=== PATIENT | male | born 2005 | race Caucasian/White ===

== ENCOUNTER 2024-06-24 15:07 | Emergency (ER) | payer OTHER, BC, SELFPAY ==
[2024-06-24 15:11] VITALS: BP 171/69; PULSE 68; RESP 16; TEMP 37.7; O2SAT 98; BMI 28.4
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
--- OUTSIDE RECORDS SUMMARY | 2024-06-24 15:49 | XMS_ITS | Clinical Summary ---
Author Organization [facility] Address [address] [place] [address] Care Team Providers Care Process Checker Name Role Phone Not Named, Unknown Primary Care Provider Unavail able Social History Tobacco Use Types Packs/Day Years Used Date Smoking Tobacco: Never Assessed Sex and Gender Information Value Date Recorded Sex Assigned at Not on file Gender Identity Not on file Sexual Orientation Not on file Plan of Treatment Health Maintenance Due Date Last Done Comments MMR VACCINES (1 of 1 - Stand kedar series) 2005 DTAP/TD/TDAP (1 - Tdap) 06/07/2011 VARICELLA VACCINES (1 of 2 - 13+ 2-dose series) 2017 HPV VACCINE (1 - Male 3-dose series) 06/07/2019 MENINGOCOCCAL B VACCINES (1 of 2 - Standard) 2020 HEPATITIS B VACCINES (1 of 3 - 19+ 3-dose series) 06/07/2023 COVID-19 VACCINE (2023-2 5 season) 2023 INFLUENZA VACCINES (9 YEARS AND OLDER) 11/21/2023 HEPATITIS A VACCINE Aged Out No longe r eligible based on patient's age to complete this topic MENINGOCOCCAL VACCINES Aged Out No lo nger eligible based on patient's age to complete this topic POLIO VACCINE Aged Out No longer elig ible based on patient's age to complete this topic Pneumococcal Vaccine Aged Out No long er eligible based on patient's age to complete this topic RSV (NIRSEVIMAB) Aged Out No longer e ligible based on patient's age to complete this topic Care Teams Process Checker Relationship Specialty Start Date End Date Not Named, Unknown PCP - General 02/25/19
--- OUTSIDE RECORDS SUMMARY | 2024-06-24 15:49 | XMS_ITS | Clinical Summary ---
Author Organization [facility] Address [address] [place] [address] Care Team Providers Care Recruiting And Selection Consultant Name Role Phone Cash Vinson MD, Jose Antonio Primary Care Provider [phone] Allergies Active Allergy Reactions Criticality Noted Date Comments Penicillins RASH Low 10/02/2012 Medications No known medications Active Problems No known active problems Immunizations Name Administration Dates Next Due Influenza, split virus, quadrivalent, PF 018 Surgical History Surgery Date Site/Laterality Comments NO PAST SURGERIES Medical History Medical History Date Comments No pertinent past medical history No known problems Social History Tobacco Use Types Packs/Day Years Used Date Smoking Tobacco: Never Assessed Inadequate Housing Answer Date Recorded Social Determinants: Housing (Overall Score Help er) 0 11/02/2018 Sex and Gender Information Value Date Recorded Sex Assigned at Not on file Gender Identity Not on file Sexual Orientation Not on file Job Start Date Occupation Industry Not on file Not on file Not on file Obstetrics History Last Filed Vital Signs Vital Sign Reading Time Taken Comments Blood Pressure 117/75 11/16/2022 3:30 PM CDT Pulse 76 11/16/2022 3:30 PM CDT Temperature 36.7 C (98 F) 11/16/2022 3:30 PM CDT Respiratory Rate 18 11/16/2022 3:30 PM CDT Oxygen Saturation 98% 11/16/2022 3:30 PM CDT Inhaled Oxygen Concentration - - Weight 84.4 kg (186 lb) 11/16/2022 3:30 PM CDT Height 177.8 cm (5' 10) 11/16/2022 3:30 PM CDT Body Mass Index 26.69 11/16/2022 3:30 PM CDT Plan of Treatment Health Maintenance Due Date Last Done Comments Annual Physical (ages 3 - 21) 06/07/2007 Depression Screening 2016 Meningococcal Serogroup B Vaccine (1 of 2 - Standard) 2020 COVID-19 Vaccine (4 - season) 2023 03/23/2021, 07/28/2020, 07/07/2020 Influenza Vaccine (Season Ended) 2024 12/25/2017 DTaP/Tdap/Td Vaccine (7 - Td or Tdap) 10/06/2025 10/07/2015, 10/07/2009, 12/15/2005, Additional history exists Hepatitis B Vaccine Completed 02/23/2005, 2004, 2004 Pneumococcal Vaccine 0-49 Completed 2005, 02/23/2005, 2004, Additional history exists Varicella Vaccine Completed 10/07/2009, 06/09/2005 HPV Vaccine Completed 11/14/2019, 10/11/2018 Meningococcal Vaccine Completed 12/25/2021, 016 Hepatitis A Vaccine Aged Out No longe r eligible based on patient's age to complete this topic Care Teams Recruiting And Selection Consultant Relationship Specialty Start Date End Date Jose Antonio Victor MD PCP - General Pediatrics 11/29/20
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
--- OUTSIDE RECORDS SUMMARY | 2024-06-24 15:49 | XMS_ITS | Referral Summary ---
Author Organization [facility] Address [address] [place] [address] Care Team Providers Care Ecological Modeler Name Role Phone Cash Vinson MD, [facility] Primary Care Provider Allergies Active Allergy Reactions Criticality Noted Date Comments Penicillins RASH Low 10/02/2012 Medications No known medications Active Problems No known active problems Immunizations Name Administration Dates Next Due Influenza, split virus, quadrivalent, PF 018 Social History Tobacco Use Types Packs/Day Years [...] file Not on file Not on file Last Filed Vital Signs [...] 11/16/2022 3:30 PM CDT Plan of Treatment Not on file Care Teams Ecological Modeler Relationship Specialty Start Date End Date Jose Antonio Victor MD PCP - General Pediatrics 11/29/20
--- OUTSIDE RECORDS SUMMARY | 2024-06-24 15:49 | XMS_ITS | Referral Summary ---
Author Organization [facility] Address [address] [place] [address] Care Team Providers Care Deli/Bakery Associate Name Role Phone Not Named, Unknown Primary Care Provider Unavail able Social History Tobacco Use Types Packs/Day Years Used Date Smoking Tobacco: Never Assessed Sex and Gender Information Value Date Recorded Sex Assigned at Not on file Gender Identity Not on file Sexual Orientation Not on file Plan of Treatment Not on file Care Teams Deli/Bakery Associate Relationship Specialty Start Date End Date Not Named, Unknown PCP - General 02/25/19
--- OUTSIDE RECORDS SUMMARY | 2024-06-24 15:49 | XMS_ITS | Encounter Summary ---
Author Organization [facility] Address [address] [place] [address] Care Team Providers Care Motor Vehicle Lecturer Name Role Phone Cash Vinson MD, Darryl Primary Care Provider [phone] Encounter Details Date Type Department Care Team ([facility] st Contact Info) Description 10/12/2019 Orders Only Family Medicine - [address] [place] [address] [address] [place] [phone] Jose Antonio Victor MD [address] [facility] [address] [place] [address] Close exposure to COVID-19 virus Social History Tobacco Use Types Packs/Day Years [...] on file Sexual Orientation Not on file COVID-19 Exposure Response Date Recorded In the last month, have you been in contact with someone who was confirmed or suspected to have Coronavirus / COVID-19? Yes 10/10/2019 6:21 PM CDT documented as of this encounter Progress Notes * Karely Macedo APN - 10/14/2019 12:56 PM CDT Primary patient preferred number [phone] Cell. May leave detailed phone message including lab/test results. Spoke with parent, verbalizes understanding and agrees with parent * Jose Antonio Victor MD - 10/14/2019 12:01 PM CDT Let Giorgio/parent know that the nasal swab is negative. Keep up observations for symptoms through the next week, though. Let me know if questions. Keep up efforts to avoid exposures. documented in this encounter Plan of Treatment Not on file documented as of this encounter Procedures Procedure Name Priority Date/Time Associated Diagnosis Comments 2019 NOVEL CORONAVIRUS (COVIDENTIFICATION-19) , NUCLEIC ACID AMPLIFICATION Routine 10/12/2019 9:36 AM CDT Close exposure to COVID-19 virus documented in this encounter Results * 2019 NOVEL CORONAVIRUS (COVID-19), MOOKIE (10/12/2019 9:36 AM CDT) SARS-CoV-2, MOOKIE Not Detected Not Detected 10/13/2019 8:08 PM CDT [facility] ([facility]) Comment: Testing was performed using the hollis(R) SARS-CoV-2 test. This test was developed and its performance characteristics determined by [employer]. This test has not been FDA cleared or approved. This test has been authorized by FDA under an Emergency Use Authorization (EUA). This test is only authorized for the duration of time the declaration that circumstances exist justifying the authorization of the emergency use of in vitro diagnostic tests for detection of SARS-CoV-2 virus and/or diagnosis of COVID-19 infection under section 564(b)(1) of the Act, 21 U.S.C. 360bbb-3(b)(1), unless the authorization is terminated or revoked sooner. When diagnostic testing is negative, the possibility of a false negative result should be considered in the context of a patient's recent exposures and the presence of clinical signs and symptoms consistent with COVID-19. An individual without symptoms of COVID-19 and who is not shedding SARS-CoV-2 virus would expect to have a negative (not detected) result in this assay. Other NASOPHARYNGEAL SWAB / Unknown 10/12/2019 9:36 AM CDT 10/12/2019 9:36 AM CDT Narrative MICHELE (PREETHI) - 10/13/2019 8:08 PM CDT Performed at: 01 - [facility] [address] [id number] Machinist Job Setter: Suha Hauser MD, Phone: [phone] Jose Antonio Vinson MD MICROBIOLOGY ORDERAB LES MICHELE MAJANO) documented in this encounter Visit Diagnoses Diagnosis Close exposure to COVID-19 virus documented in this encounter Additional Health Concerns Infection Onset Date Last Indicated Resolved Time R/O COVID19 10/12/2019 10/12/2019 10/13/2019 7:08 PM CDT documented as of this encounter Care Teams Motor Vehicle Lecturer Relationship Specialty Start Date End Date Jose Antonio Victor MD [address] [address] PCP - General Internal Medicine 10/02/12 documented as of this encounter
--- OUTSIDE RECORDS SUMMARY | 2024-06-24 15:49 | XMS_ITS | Continuity of Care Document ---
Author Organization [facility] Address [address] [facility] [address] [place] [address] Phone Care Team Providers Care Director Of Physiotherapy Services Name Role Phone Cesar PT, MPT, Juice Unavailable Unavail able Procedures Procedure Date Neuromuscular Re-Ed Therapeutic Activities Therapeutic Exercise Therapeutic Activities Neuromuscular Re-Ed Therapeutic Exercise Neuromuscular Re-Ed Therapeutic Activities Therapeutic Exercise Therapeutic Activities Progress Note Neuromuscular Re-Ed Hot or Cold Pack Therapeutic Exercise Electrical Stimulation Therapeutic Exercise Neuromuscular Re-Ed Therapeutic Activities Therapeutic Exercise Therapeutic Activities Neuromuscular Re-Ed Therapeutic Activities Neuromuscular Re-Ed Therapeutic Exercise Therapeutic Activities Neuromuscular Re-Ed Neuromuscular Re-Ed Therapeutic Exercise Therapeutic Activities Neuromuscular Re-Ed Therapeutic Exercise Therapeutic Exercise PT Evaluation Moderate Complexity Neuromuscular Re-Ed Therapeutic Activities Advance Directives Directive Yes / No Effective Date File Name No Information Encounters Encounter Description Practice Location Reason(s) For Visit Diagnoses Date Provider Providers [facility]ied on [facility] [address] [facility], [place], [place], [id number], tel:[phone] [place] No Information Cesar Juice. [address] [place], [address], . tel:[phone] [facility], [address], [place], [place], [id number], tel:[phone] [place] No Information Cesar Juice. [facility]ly [facility] [place], [address], . tel:[phone] Referring Provider: Nestor Coleman PA-C, [address] [place] [address], [place], [address]. tel:[phone] [facility], [place], [place], [id number], tel:[phone] [place] No Information Cesar Juice. [facility] [place], [address], . tel:[phone] Referring Provider: Nestor Coleman PA-C, [address] [place] [address], [place], [address]. tel:[phone] [facility], [address], [place], [place], [id number], tel:[phone] [place] No Information Cesar Juice. [facility] [place], [address], [place]. tel:[phone] Referring Provider: Nestor Coleman PA-C, [address] [place] [address], [place], [address]. tel:[phone] [facility], [address], [place], [place], [id number], tel:[phone] [place] No Information Cesar Juice. [address] [place], [address], [place]. tel:[phone] Referring Provider: Nestor Coleman PA-C, [facility], [place], [address]. tel:[phone] [facility], [address] [facility], [place], [place], [id number], [place] tel:[phone] [place] No Information Cesar Juice. [address] [place], [address], [place]. tel:[phone] Referring Provider: Nestor Coleman PA-C, [facility], [place], [address]. tel:[phone] [place] [address], [address] [facility], [place], [place], [id number], [place] tel:[phone] [place] No Information Cesar Juice. [address] [place], [address], [place]. tel:[phone] Referring Provider: Nestor Coleman PA-C, [address] [facility], [place], [address]. tel:[phone] [place] [address], [address] [facility] [address], [place], [place], [id number], [place] tel:[phone] [place] No Information Cesar Juice. [address] [place], [address], [place]. tel:[phone] Referring Provider: Nestor Coleman PA-C, [address], [place], [address]. tel:[phone] [facility], [address] [facility], [place], [id number], [place] tel:[phone] [place] No Information Cesar Juice. [address] [place], [address], [place]. tel:[phone] Referring Provider: Nestor Coleman PA-C, [address], [place], [address]. tel:[phone] [facility], [address] [facility] [address] [place] [address], [id number], tel:[phone] [place] No Information Cesar Bose. [facility] [place], [address], . tel:[phone] Referring Provider: Nestor Coleman PA-C, [facility] [place], [address]. tel:[phone] [facility], [address], [id number], tel:[phone] [place] No Information Cesar Bose. [facility] [place], [address], . tel:[phone] Referring Provider: Nestor Coleman PA-C, [facility] [place], [address]. tel:[phone] [facility], [address], [id number], tel:[phone] [place] No Information Cesar Bose. [facility] [place], [address], . tel:[phone] Referring Provider: Nestor Coleman PA-C, [facility] [place], [address]. tel:[phone] Family History Family Member Type Diagnosis Age At Onset No Information Payers Payer name Insurance type Covered republican ID Authoriza tion(s) No Information Social History Type Description Quantity Date Captured Comments Sex Male Smoking Status No Information Chief Complaint And Reason For Visit No Information Reason For Referral Reason For Referral No Information History Of Present Illness Encounter Date Complaint History Of Prese nt Illness No Information Functional Status Date Functional Assessmen t No Information Instructions Date Instruction Additional Infor mation No Information Assessments Type Assessment Date No Information Patient Care Teams Name Effective Dates (start - stop) Status Members No Information
--- OUTSIDE RECORDS SUMMARY | 2024-06-24 15:50 | XMS_ITS | Clinical Summary ---
Author Organization [facility] Address [address] [place] [address] Care Team Providers Care Studio Engineer Name Role Phone Cash Vinson MD, Jose Antonio Primary Care Provider [phone] Allergies Active Allergy Reactions Criticality Noted Date Comments Penicillins RASH Low 10/02/2012 Medications No known medications Active Problems Problem Noted Date Diagnosed Date Knee laceration 01/18/2015 Immunizations Name Administration Dates Next Due DTAP 10/07/2009, 6,2004,2004,2004 FLUZONE 6 months and older P FS 0.5 ml (21512) 12/25/2017 HEP B 02/23/2005,2004,2004 HIB 09/15/2005, 5,2004,2004 Hpv Virus Vaccine 9 Edna Im 11/14/2019,10/11/2018 IPV 10/07/2009, 6,2004,2004 MMR 06/09/2005 MMR/Varicella Combined 10/07/2009 Meningococcal-Menactra 10/07/2015 Meningococcal-Menquadfi 12/25/2021 Pneumococcal (Prevnar 13) 06/09/2005,07/2004,2004,2004 TDAP 10/07/2015 Varicella 06/09/2005 Family History Medical History Relation Comments No Known Problems Father No Known Problems Mother Relation Status Comments Father Alive Mother Alive Social History Tobacco Use Types Packs/Day Years [...] Sign Reading Time Taken Comments Blood Pressure 126/74 12/25/2021 4:20 PM CDT Pulse 89 12/25/2021 4:20 PM CDT Temperature 36.6 C (97.9 F) 11/14/2019 10:11 AM CDT Respiratory Rate 18 10/02/2012 2:47 PM CDT Oxygen Saturation 99% 12/25/2021 4:20 PM CDT Inhaled Oxygen Concentration - - Weight 88 kg (194 lb) 12/25/2021 4:20 PM CDT Height 177.8 cm (5' 10) 12/25/2021 4:20 PM CDT Body Mass Index 27.84 12/25/2021 4:20 PM CDT Plan of Treatment Health Maintenance Due Date Last Done Comments Annual Depression Screen 2016 Meningococcal B Vaccine (1 of 2 - Standard) 2020 Annual Physical 02/08/2023 02/08/2022, 1008/2021, 11/14/2019, Additional history exists COVID-19 Vaccine ( - season) 2023 03/23/2021, 07/28/2020, 07/07/2020 Influenza Vaccine (#1) 2023 12/25/2017 DTaP,Tdap,and Td Vaccines (7 - Td or Tdap) 10/06/2025 10/07/2015, 10/07/2009, 12/15/2005, Additional history exists Hepatitis B Vaccines Completed 02/23/2005, 2004, 2004 Pneumococcal Vaccine: to 49yrs Completed 06/09/2005, 02/23/2005, 2004, Additional history exists MMR Vaccines Completed 10/07/2009, 06/09/2005 Varicella Vaccines Completed 10/07/2009, 06/09/2005 HPV Vaccines Completed 11/14/2019, 10/11/2018 Meningococcal Vaccine Completed 12/25/2021, 016 Hepatitis A Vaccines Aged Out No long er eligible based on patient's age to complete this topic Procedures Procedure Name Priority Date/Time Associated Diagnosis Comments PERIODIC PREVENTIVE MED EST PATIENT 12-17YRS Routine 02/08/2022 5:37 PM FUNCTIONAL DIRECTOR Routine sports physical exam from Last 3 Months or Most Recently Relevant to Health Maintenance Care Teams Studio Engineer Relationship Specialty Start Date End Date Jose Antonio Victor MD [address] [facility] [address] [place], [place] [id number] PCP - General Internal Medicine 10/02/12
--- OUTSIDE RECORDS SUMMARY | 2024-06-24 15:50 | XMS_ITS | Clinical Summary ---
Author Organization [facility] Address [address] [place] [address] Care Team Providers Care Exercise Specialist Name Role Phone Cash Vinson MD, Jose Antonio Primary Care Provider [phone] Allergies Active Allergy Reactions Criticality Noted Date [...] 13) 06/09/2005,02/23/2005, 2004,2004 TDAP 10/07/2015 Varicella 06/09/2005 Family History Medical [...] 11/14/2019 10:11 AM CDT Plan of Treatment Health Maintenance Due Date Last Done Comments Annual Physical 2004 Insurance * Guarantor: *NEW ACCOUNT* Account Type Relation to Patient Date of Phone Billing Address Personal/[place] [address] [employer] Care Teams Exercise Specialist Relationship Specialty Start Date End Date Jose Antonio Victor MD PCP - General Internal Medicine 10/02/12
--- OUTSIDE RECORDS SUMMARY | 2024-06-24 15:50 | XMS_ITS | Encounter Summary ---
Author Organization [facility] Address [address] [place] [address] Care Team Providers Care Rn Womens Health Name Role Phone LinkJose Antonio MD Primary Care Provider [phone] Source Comments In the event that this is information that is protected by federal Confidentiality of Substance User Disorder Patient Records, 42 CFR Part 2 prohibits the unauthorized disclosure of these records.[facility] Encounter Details Date Type Department Care Team (Late st Contact Info) Description 05/11/2012 Orders Only [place] [facility] [address] [place] [address] Bravo Spear DUPLICATE DO NOT USE Social History Tobacco Use Types Packs/Day Years Used Date Smoking Tobacco: Never Assessed Sex and Gender Information Value Date Recorded Sex Assigned at Not on file Legal Sex Male 3:59 AM CDT Gender Identity Not on file Sexual Orientation Not on file documented as of this encounter Plan of Treatment Not on file documented as of this encounter Visit Diagnoses Not on filedocumented in this encounter Care Teams Rn Womens Health Relationship Specialty Start Date End Date LinkJose Antonio MD PCP - General Pediatrics 01/18/15 documented as of this encounter
--- OUTSIDE RECORDS SUMMARY | 2024-06-24 15:50 | XMS_ITS | Clinical Summary ---
Author Organization [facility] Address [address] [place] [address] Care Team Providers Care Costume Seamstress Name Role Phone Link, Jose Antonio Swartz MD Primary Care Provider [phone] Source Comments In the event that this is information that is protected by federal Confidentiality of Substance UseDisorder Patient Records, 42 CFR Part 2 prohibits the unauthorized disclosure of these records.[facility] Allergies Active Allergy Reactions Criticality Noted Date Comments Penicillins Rash 01/18/2015 Active Problems Problem Noted Date Diagnosed Date Contusion of left knee and lower leg 12/15/2018 Knee laceration 01/18/2015 Social History Tobacco Use Types Packs/Day Years Used Date Smoking Tobacco: Never Alcohol Use Standard Drinks/Week Comments No 0 (1 standard drink = 0.6 oz pur e alcohol) [employer] Answer Date Recorded Please choose the link for ' [employer]'above to launch [employer], a personalized community referral platform for a patient's SDOH needs. - 08/30/2020 Sex and Gender Information Value Date Recorded Sex Assigned at Not on file Legal Sex Male 3:59 AM CDT Gender Identity Not on file Sexual Orientation Not on file Last Filed Vital Signs Vital Sign Reading Time Taken Comments Blood Pressure 143/73 12/15/2018 9:02 PM CDT Pulse 71 12/15/2018 10:26 PM CDT Temperature 36.8 C (98.3 F) 12/15/2018 9:02 PM CDT Respiratory Rate 18 12/15/2018 10:26 PM CDT Oxygen Saturation 100% 12/15/2018 10:26 PM CDT Inhaled Oxygen Concentration - - Weight - - Height 177.8 cm (5' 10) 12/15/2018 9:02 PM CDT Body Mass Index - - Plan of Treatment Health Maintenance Due Date Last Done Comments HPV (2 - Male 2-dose series) 04/13/2019 10/11/2018 HIV SCREENING 06/07/2019 MENINGOCOCCAL B (MENB) (1 of 2 - Standard) 2020 HEPATITIS C SCREENING 2022 LIPID TESTING 2022 COVID-19 VACCINE ( season) 2023 INFLUENZA (Season Ended) 2024 DTAP/TDAP/TD (7 - Td or Tdap) 10/06/2025 10/07/2015, 10/07/2009, 12/15/2005, Additional history exists Pneumococcal 0-49 Completed 06/09/2005, , 2004, Additional history exists MENINGOCOCCAL CONJUGATE (MCV4) Aged Out 10/07/2015 No longer eligible based on patient's age to complete this topic Insurance BCBS - OUT OF STATE PPO BCBS - OUT OF STATE PPO Care Teams Costume Seamstress Relationship Specialty Start Date End Date Link, Jose Antonio Swartz MD PCP - General Pediatrics 01/18/15
== END 2024-06-24 15:51 | disposition home or self-care (01) ==
LOC: ED 15:48
PROVIDERS: Emergency Provider Emergency Medicine Emergency Medical Services
DX: S39.012A Strain of muscle, fascia and tendon of lower back, initial encounter (principal); V43.52XA Car driver injured in collision with other type car in traffic accident, initial encounter
CPT/HCPCS: 99283; 99284